=== PATIENT | male | born 1985 | race Caucasian/White ===

== ENCOUNTER 2016-06-27 12:33 | Inpatient (IN) | payer BC ==
[2016-06-27 17:44] VITALS: BMI 28.3
--- NOTE | 2016-06-27 18:06 | HP ---
COWS - Scale Resting Pulse: 2= SD 101-120 Sweatin= Chills/Flushing Restless Observation: 3= Extraneous Movement Pupil Size: 0= Normal to Room Light Bone or Joint Aches: 2= Severe Diffuse Aches Runny Nose/ Eye Tearin= Runny Nose/Eyes GI Upset > 30mins: 2= Nausea/Diarrhea Tremor Observation: 2= Slight Tremor Visible Yawning Observation: 0= None Anxiety or Irritability: 1=Feels Anxious/Irritable Goose Flesh Skin: 3=Piloerection COWS Score: 18 Admission ROS S - HPI Chief Complaint: 30 years old male with long history of opiate dependence denies medical issue has depression and anxiety is admitted to detox Allergies/Adverse Reactions: Allergies Allergy/AdvReac Type Severity Reaction Status Date / Time No Known Allergies Allergy Verified 06/27/16 17:44 History of Present Illness: withdrawal sx Exam Limitations: No Limitations - Ebola screening Have you traveled outside of the country in the last 21 days: No Have you had contact with anyone from an Ebola affected area: No Have you been sick,other than usual withdrawal symptoms: No Do you have a fever: No - Review of Systems Constitutional: Chills, Changes in sleep, Weight Stable EENT: reports: No Symptoms Reported Respiratory: reports: No Symptoms reported Cardiac: reports: No Symptoms Reported GI: reports: Diarrhea, Nausea, Poor Fluid Intake, Indigestion, Abdominal cramping : reports: No Symptoms Reported Musculoskeletal: reports: Back Pain, Joint Pain, Muscle Pain, Neck Pain Integumentary: reports: No Symptoms Reported Neuro: reports: Tremors Endocrine: reports: No Symptoms Reported Hematology: reports: No Symptoms Reported Psychiatric: reports: Judgement Intact, Orientated x3, Anxious Other Systems: Reviewed and Negative Patient History - Patient Medical History Hx Anemia: No Hx Asthma: No Hx Chronic Obstructive Pulmonary Disease (COPD): No Hx Cancer: No Hx Cardiac Disorders: No Hx Congestive Heart Failure: No Hx Hypertension: No Hx Hypercholesterolemia: No Hx Pacemaker: No HX Cerebrovascular Accident: No Hx Seizures: No Hx Dementia: No Hx Diabetes: No Hx Gastrointestinal Disorders: No Hx Liver Disease: No Hx Genitourinary Disorders: No Hx Sexually Transmitted Disorders: No Hx Renal Disease (ESRD): No Hx Thyroid Disease: No Hx Human Immunodeficiency Virus (HIV): No Hx Hepatitis C: No Hx Depression: Yes Hx Suicide Attempt: No Hx Bipolar Disorder: No Hx Schizophrenia: No - Patient Surgical History Past Surgical History: Yes Hx Neurologic Surgery: Yes (deep brain stimulation 2012, removed 2014) Anesthesia Reaction: No - PPD History Previous Implant?: Yes Documented Results: Positive w/o proof Implanted On Prior R Admission?: No PPD to be Administered?: No - Smoking Cessation Smoking history: Never smoked Have you smoked in the past 12 months: No Hx Chewing Tobacco Use: No Initiated information on smoking cessation: No - Substance & Tx. History Hx Alcohol Use: Yes Hx Substance Use: Yes Substance Use Type: Alcohol, Opiates Hx Substance Use Treatment: Yes - Substances Abused Alcohol Route: Oral Frequency: 1-2 times per week Amount used: 4 oz volka Age of first use: 28 Date of Last Use: 06/25/16 PERCOCETS Route: Oral Frequency: Daily Amount used: 60 - 70 mg Age of first use: 28 Date of Last Use: 06/26/16 Family Disease History - Family Disease History Family Disease History: Heart Disease: Father (stroke ) Admission Physical Exam [facility] - Vital Signs Vital Signs: Vital Signs - 24 hr 06/27/16 17:43 Temperature 97.8 F Pulse Rate 101 H Respiratory 18 Rate Blood Pressure 132/77 - Physical General Appearance: Yes: Nourished, Appropriately Dressed, Moderate Distress, Tremorous, Irritable, Sweating, Anxious HEENTM: Yes: Hearing grossly Normal, Normal ENT Inspection, Normocephalic, Normal Voice Respiratory: Yes: Chest Non-Tender, Lungs Clear, Normal Breath Sounds, No Respiratory Distress, No Accessory Muscle Use Neck: Yes: Supple, Trachea in good position Breast: Yes: Breasts Symetrical Cardiology: Yes: Regular Rhythm, S1, S2, Tachycardia (amphetamine) Abdominal: Yes: Non Tender, Soft, Increased Bowel Sounds Genitourinary: Yes: Within Normal Limits Back: Yes: Normal Inspection Musculoskeletal: Yes: full range of Motion, Gait Steady, Back pain, Muscle Pain Extremities: Yes: Normal Range of Motion, Non-Tender, Tremors Neurological: Yes: Fully Oriented, Alert, Motor Strength 5/5, Normal Response, Depressed Affect Integumentary: Yes: Warm Lymphatic: Yes: Within Normal Limits - Diagnostic (1) Opioid dependence with withdrawal Current Visit: Yes Status: Acute (2) Positive PPD, treated Current Visit: Yes Status: Resolved (3) Anxiety and depression Current Visit: Yes Status: Suspected Cleared for Admission [facility] - Detox or Rehab [facility] Level of Care: Medically Managed Detox Regimen/Protocol: Methadone [facility] Breath Alcohol Content Breath Alcohol Content: 0 Urine Drug Screen - Results Drug Screen Negative: No Urine Drug Screen Results: OPI-Opiates, AMP-Amphetamines, OXY-Oxycodone
[2016-06-27] MEDS ORDERED: ACETAMINOPHEN 325 MG TABLET (FP) PO PRN (18:13)
[2016-06-27] MEDS ORDERED: MAGNESIUM CITRATE 300 ML BOTTLE PO PRN (18:13)
[2016-06-27] MEDS ORDERED: MAG HYDROX/AL HYDROX/SIMETH 30 ML UNIT-DOSE CUP PO PRN (18:13)
[2016-06-27] MEDS ORDERED: guaiFENesin/D-METHORPHAN HB 10 ML UNIT-DOSE CUPS PO PRN (18:13)
[2016-06-27] MEDS ORDERED: MENTHOL/PHENOL 1 EACH UD MM PRN (18:13)
[2016-06-27] MEDS ORDERED: P-EPHED 60MG/TRIPROLIDI 2.5MG TABLET PO PRN (18:13)
[2016-06-27] MEDS ORDERED: LOPERAMIDE HCL 2 MG CAPSULE PO PRN (18:13)
[2016-06-27] MEDS ORDERED: MAGNESIUM HYDROX 2400MG/30ML ORAL SUSPENSION 30 ML CUP PO PRN (18:13)
[2016-06-27] MEDS ORDERED: METHADONE HCL 10 MG TABLET (FOR DETOX USE ONLY) PO ONE ×2 (19:00→23:00)
[2016-06-27] MEDS: diazePAM 5 MG TABLET PO PRN (19:50)
[2016-06-27] MEDS: IBUPROFEN 400 MG TABLET (FP) PO PRN (22:14)
[2016-06-27] MEDS: diphenhydrAMINE HCL 50 MG CAPSULE PO PRN (22:15)
[2016-06-27] MEDS: THIAMINE HCL 100 MG TABLET (FP) PO SCH (22:15)
[2016-06-27 22:54] LABS: URINE APPEARANCE CLEAR; URINE BILIRUBIN NEGATIVE (NEGATIVE); URINE BLOOD NEGATIVE (NEGATIVE); URINE COLOR LTYELLOW; URINE GLUCOSE (UA) NEGATIVE (NEGATIVE); URINE KETONE NEGATIVE (NEGATIVE); URINE LEUK ESTERASE NEGATIVE (NEGATIVE); URINE NITRITE NEGATIVE (NEGATIVE); URINE PROTEIN NEGATIVE (NEGATIVE); URINE UROBILINOGEN NEGATIVE E.U./dl (0.2-1.0)
[2016-06-28] MEDS: diazePAM 5 MG TABLET PO PRN ×3 (06:01→22:16)
[2016-06-28] MEDS ORDERED: METHADONE HCL 10 MG TABLET (FOR DETOX USE ONLY) PO ONE (10:00)
[2016-06-28] MEDS: PRENATAL VITAMINS W/ FOLIC ACID TABLET (FP) PO SCH (10:11)
--- NOTE | 2016-06-28 11:05 | PN ---
BHS COWS - Scale Resting Pulse: 1= ND 81-100 Sweatin=Flushed/Facial Moisture Restless Observation: 1= Difficult to Sit Still Pupil Size: 0= Normal to Room Light Bone or Joint Aches: 2= Severe Diffuse Aches Runny Nose/ Eye Tearin= Runny Nose/Eyes GI Upset > 30mins: 2= Nausea/Diarrhea Tremor Observation of Outstretched Hands: 2= Slight Tremor Visible Yawning Observation: 1= 1-2x During Session Anxiety or Irritability: 2=Irritable/Anxious Goose Flesh Skin: 0=Smooth Skin COWS Score: 15 BHS Progress Note (SOAP) Subjective: Anxiety,tremors,sweating,interrupted sleep,restless Objective: 06/28/16 11:04 Vital Signs - 8 hr 06/28/16 06/28/16 06/28/16 03:30 06:45 09:46 Temperature 97.6 F 97.9 F Pulse Rate 75 87 Respiratory 18 18 18 Rate Blood Pressure 105/77 108/76 Laboratory Tests 06/27/16 22:00 Urine Color Ltyellow Urine Appearance Clear Urine pH 6.0 Ur Specific [place] 1.023 Urine Protein Negative Urine Glucose (UA) Negative Urine Ketones Negative Urine Blood Negative Urine Nitrite Negative Urine Bilirubin Negative Urine Urobilinogen Negative Ur Leukocyte Esterase Negative noted Assessment: 06/28/16 11:04 Withdrawal sx. Plan: Continue detox
[2016-06-28 11:41] LABS: ALBUMIN 4.2 g/dl (3.4-5.0); ALK PHOS 104 U/L (45-117); ANION GAP 7 (8-16); BILIRUBIN,TOTAL 0.4 mg/dL (0.2-1.0); CALCIUM 9.6 mg/dL (8.5-10.1); CO2 32 mmol/L (21-32); COCKROFT - GAULT 136; CREATININE 0.9 mg/dL (0.7-1.3); GLUCOSE,RANDOM 103 mg/dL (74-106); SGOT/AST 27 U/L (15-37); SGPT/ALT 44 U/L (12-78); TOT PROT 7.8 g/dl (6.4-8.2)
[2016-06-28 11:48] LABS: MCH 30.8 pg (25.7-33.7); MCHC 33.8 g/dl (32.0-35.9); MEAN CELL VOLUME 91.1 fl (80-96); MEAN PLT VOLUME 8.1 fl (7.5-11.1); PLATELET COUNT 265 K/MM3 (134-434); RDW 13.1 % (11.9-15.9); WHITE BLOOD COUNT 7.3 K/mm3 (4.0-10.0)
--- NOTE | 2016-06-28 12:47 | CONSULT ---
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 Smoking history: Never smoked. Have you smoked in the past 12 months: No. Hx Chewing Tobacco Use: No. Initiated information on smoking cessation: No. - Substance & Tx. History. Hx Alcohol Use: Yes. Hx Substance Use: Yes. Substance Use Type: Alcohol, Opiates. Hx Substance Use Treatment: Yes. - Substances Abused. Alcohol. Route: Oral. Frequency: 1-2 times per week. Amount used: 4 oz volka. Age of first use: 28. Date of Last Use: 06/25/16. PERCOCETS. Route: Oral. Frequency: Daily. Amount used: 60 - 70 mg. Age of first use: 28. 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 So at 15, he became very withdrawn, isolative , very introverted. He has been seeing psychiatrist on & off since 15 and has been tried on various psychotropic medications including Prozac, Paxil, Zoloft, Wellbutrin, Remeron and [place]. He was even tried on VNS and DBS([id number]). For the past years, he has been Dr Dallas, a private psychiatrist [place] and he is currently prescribed Adderal 30 mg po daily & Vivanse 50 mg po daily. Reports 2 previous psychiatric admissions for depression to [facility] in 2007 and most recently to [facility] in 2011. Reports one previous suicidal attempt by cutting wrist in 2007. Physical/Sexual Abuse/Trauma History: Denies history of emotional, physical or sexual as well as DV relationship Additional Comment: Reports history of one previous arrests for drug possesion. Claims that it was originally a felony and was degraded to a misdemeanor. Reports being on probation Mental Status Exam - Mental Status Exam Alert and Oriented to: Time, Place, Person Cognitive Function: Fair Patient Appearance: Well Groomed Mood: Depressed Affect: Appropriate Patient Behavior: Cooperative Speech Pattern: Clear Voice Loudness: Normal Thought Process: Intact Thought Disorder: Not Present Hallucinations: Denies Suicidal Ideation: Denies, Past, Plan Insight/Judgement: Poor Sleep: Well Appetite: Good Muscle strength/Tone: Normal Gait/Station: Normal Psychiatric Findings - Problem List ([place] 1, 2,3) (1) MDD (major depressive disorder), recurrent episode Current Visit: Yes Status: Acute (2) Opioid dependence with withdrawal Current Visit: Yes Status: Acute (3) Alcohol abuse Current Visit: Yes Status: Acute (4) Positive PPD, treated Current Visit: Yes Status: Resolved - Initial Treatment Plan Initial Treatment Plan: Continue inpatient detoxification
--- NOTE | 2016-06-28 13:58 | EKG ---
Test Reason : Blood Pressure : / mmHG Vent. Rate : 091 BPM Atrial Rate : 091 BPM P-R Int : 146 ms QRS Dur : 088 ms QT Int : 348 ms P-R-T Axes : 055 065 040 degrees QTc Int : 428 ms NORMAL SINUS RHYTHM NORMAL ECG NO PREVIOUS ECGS AVAILABLE Confirmed by ILAN LUGO, CHANCE ([id number]) on 06/28/2016 1:58:19 PM Referred By: Confirmed By:CHANCE TALAVERA MD
[2016-06-28] MEDS: THIAMINE HCL 100 MG TABLET (FP) PO SCH (22:16)
[2016-06-29] MEDS: diazePAM 5 MG TABLET PO PRN ×2 (05:50→22:21)
[2016-06-29] MEDS ORDERED: METHADONE HCL 5 MG TABLET (FOR DETOX USE ONLY) PO ONE (10:00)
[2016-06-29] MEDS: PRENATAL VITAMINS W/ FOLIC ACID TABLET (FP) PO SCH (10:07)
--- NOTE | 2016-06-29 16:35 | PN ---
BHS COWS - Scale Resting Pulse: 1= NC 81-100 Sweatin=Flushed/Facial Moisture Restless Observation: 1= Difficult to Sit Still Pupil Size: 0= Normal to Room Light Bone or Joint Aches: 2= Severe Diffuse Aches Runny Nose/ Eye Tearin= Runny Nose/Eyes GI Upset > 30mins: 2= Nausea/Diarrhea Tremor Observation of Outstretched Hands: 2= Slight Tremor Visible Yawning Observation: 1= 1-2x During Session Anxiety or Irritability: 2=Irritable/Anxious Goose Flesh Skin: 0=Smooth Skin COWS Score: 15 BHS Progress Note (SOAP) Subjective: Sweating,anxiety,tremors,interrupted sleep,restless Objective: 06/29/16 16:34 Vital Signs - 8 hr 06/29/16 06/29/16 09:40 13:29 Temperature 97.3 F L 97.5 F L Pulse Rate 91 H 83 Respiratory 18 20 Rate Blood Pressure 111/67 110/70 Laboratory Tests 06/27/16 06/28/16 06/28/16 22:00 06:40 06:40 WBC 7.3 RBC 5.26 Hgb 16.2 Hct 47.9 MCV 91.1 MCHC 33.8 RDW 13.1 Plt Count 265 MPV 8.1 Sodium 140 Potassium 4.6 Chloride 101 Carbon Dioxide 32 Anion Gap 7 L BUN 14 Creatinine 0.9 Creat Clearance w eGFR > 60 Random Glucose 103 Calcium 9.6 Total Bilirubin 0.4 AST 27 ALT 44 Alkaline Phosphatase 104 Total Protein 7.8 Albumin 4.2 Urine Color Ltyellow Urine Appearance Clear Urine pH 6.0 Ur Specific [place] 1.023 Urine Protein Negative Urine Glucose (UA) Negative Urine Ketones Negative Urine Blood Negative Urine Nitrite Negative Urine Bilirubin Negative Urine Urobilinogen Negative Ur Leukocyte Esterase Negative RPR Titer 06/28/16 06:40 WBC RBC Hgb Hct MCV MCHC RDW Plt Count MPV Sodium Potassium Chloride Carbon Dioxide Anion Gap BUN Creatinine Creat Clearance w eGFR Random Glucose Calcium Total Bilirubin AST ALT Alkaline Phosphatase Total Protein Albumin Urine Color Urine Appearance Urine pH Ur Specific [place] Urine Protein Urine Glucose (UA) Urine Ketones Urine Blood Urine Nitrite Urine Bilirubin Urine Urobilinogen Ur Leukocyte Esterase RPR Titer Nonreactive labs noted Assessment: 06/29/16 16:34 Withdrawal sx. Plan: Continue detox
[2016-06-29] MEDS: THIAMINE HCL 100 MG TABLET (FP) PO SCH (22:21)
[2016-06-29] MEDS: IBUPROFEN 400 MG TABLET (FP) PO PRN (22:22)
[2016-06-30] MEDS: diazePAM 5 MG TABLET PO PRN ×2 (05:46→10:13)
[2016-06-30] MEDS ORDERED: METHADONE HCL 5 MG TABLET (FOR DETOX USE ONLY) PO ONE (10:00)
--- NOTE | 2016-06-30 10:07 | PN ---
BHS Progress Note (SOAP) Subjective: Anxiety,tremors,sweating,interrupted sleep,restless Objective: 06/30/16 10:06 Vital Signs - 8 hr 06/30/16 06/30/16 06/30/16 03:30 06:26 09:18 Temperature 97.6 F 96.7 F L Pulse Rate 73 75 Respiratory 18 16 18 Rate Blood Pressure 119/70 117/76 Laboratory Last Values WBC 7.3 K/mm3 (4.0-10.0) 06/28/16 06:40 RBC 5.26 M/mm3 (4.00-5.60) 06/28/16 06:40 Hgb 16.2 GM/dL (11.7-16.9) 06/28/16 06:40 Hct 47.9 % (35.4-49) 06/28/16 06:40 MCV 91.1 fl (80-96) 06/28/16 06:40 MCHC 33.8 g/dl (32.0-35.9) 06/28/16 06:40 RDW 13.1 % (11.9-15.9) 06/28/16 06:40 Plt Count 265 K/MM3 (134-434) 06/28/16 06:40 MPV 8.1 fl (7.5-11.1) 06/28/16 06:40 Sodium 140 mmol/L (136-145) 06/28/16 06:40 Potassium 4.6 mmol/L (3.5-5.1) 06/28/16 06:40 Chloride 101 mmol/L (98-107) 06/28/16 06:40 Carbon Dioxide 32 mmol/L (21-32) 06/28/16 06:40 Anion Gap 7 (8-16) L 06/28/16 06:40 BUN 14 mg/dL (7-18) 06/28/16 06:40 Creatinine 0.9 mg/dL (0.7-1.3) 06/28/16 06:40 Creat Clearance w eGFR > 60 (>60) 06/28/16 06:40 Random Glucose 103 mg/dL (74-106) 06/28/16 06:40 Calcium 9.6 mg/dL (8.5-10.1) 06/28/16 06:40 Total Bilirubin 0.4 mg/dL (0.2-1.0) 06/28/16 06:40 AST 27 U/L (15-37) 06/28/16 06:40 ALT 44 U/L (12-78) 06/28/16 06:40 Alkaline Phosphatase 104 U/L (45-117) 06/28/16 06:40 Total Protein 7.8 g/dl (6.4-8.2) 06/28/16 06:40 Albumin 4.2 g/dl (3.4-5.0) 06/28/16 06:40 Urine Color Ltyellow 06/27/16 22:00 Urine Appearance Clear 06/27/16 22:00 Urine pH 6.0 (5.0-8.0) 06/27/16 22:00 Ur Specific [place] 1.023 (1.001-1.035) 06/27/16 22:00 Urine Protein Negative (NEGATIVE) 06/27/16 22:00 Urine Glucose (UA) Negative (NEGATIVE) 06/27/16 22:00 Urine Ketones Negative (NEGATIVE) 06/27/16 22:00 Urine Blood Negative (NEGATIVE) 06/27/16 22:00 Urine Nitrite Negative (NEGATIVE) 06/27/16 22:00 Urine Bilirubin Negative (NEGATIVE) 06/27/16 22:00 Urine Urobilinogen Negative E.U./dl (0.2-1.0) 06/27/16 22:00 Ur Leukocyte Esterase Negative (NEGATIVE) 06/27/16 22:00 RPR Titer Nonreactive (NONREACTIVE) 06/28/16 06:40 labs noted Assessment: 06/30/16 10:07 Withdrawal sx. Plan: Continue detox
[2016-06-30] MEDS: PRENATAL VITAMINS W/ FOLIC ACID TABLET (FP) PO SCH (10:12)
[2016-06-30] MEDS: IBUPROFEN 400 MG TABLET (FP) PO PRN (16:44)
[2016-06-30] MEDS: THIAMINE HCL 100 MG TABLET (FP) PO SCH (22:12)
[2016-06-30] MEDS: diphenhydrAMINE HCL 50 MG CAPSULE PO PRN (22:12)
[2016-07-01] MEDS: diphenhydrAMINE HCL 50 MG CAPSULE PO PRN (00:50)
[2016-07-01] MEDS: PRENATAL VITAMINS W/ FOLIC ACID TABLET (FP) PO SCH (09:41)
[2016-07-01 09:56] VITALS: BP 117/71; PULSE 95; TEMP 97.1
[2016-07-01] MEDS ORDERED: METHADONE HCL 10 MG TABLET (FOR DETOX USE ONLY) PO ONE (10:00)
--- NOTE | 2016-07-01 10:43 | DS ---
[facility] Detox Discharge Summary Admission Date: 06/27/16 Discharge Date: 07/01/16 - History Present History: Opioid Dependence Additional Comments: ALERT O X 3. NAD. Pertinent Past History: PPD+ HX - Physical Exam Results Vital Signs: Vital Signs Temperature 97.1 F L 07/01/16 09:55 Pulse Rate 95 H 07/01/16 09:55 Respiratory Rate 20 07/01/16 09:55 Blood Pressure 117/71 07/01/16 09:55 O2 Sat by Pulse Oximetry (%) Pertinent Admission Physical Exam Findings: WITHDRAWAL SX - Treatment Hospital Course: Detox Protocol Followed, Detoxed Safely, Responded well, Discharged Condition Good - Medication Discharge Medications: Ambulatory Orders Dextroamphetamine/Amphetamine [Adderall Xr 30 mg Capsule] 30 mg PO DAILY Lisdexamfetamine Dimesylate [Vyvanse] 50 mg PO DAILY 06/27/16 - Diagnosis (1) MDD (major depressive disorder), recurrent episode Current Visit: Yes Status: Acute (2) Opioid dependence with withdrawal Current Visit: Yes Status: Acute (3) Anxiety and depression Current Visit: Yes Status: Suspected - AMA Did Patient Leave Against Medical Advice: No
[2016-07-02] MEDS ORDERED: METHADONE HCL 5 MG TABLET (FOR DETOX USE ONLY) PO ONE (06:00)
== END 2016-07-01 10:11 | disposition home or self-care (01) | DRG 897 ==
LOC: YASAS 12:33 → Y3N 18:44
PROVIDERS: ADMIT Internal Medicine; ATTEND Internal Medicine
PROC: HZ2ZZZZ Detoxification Services for Substance Abuse Treatment (ICD-10-PCS; principal; 2016-07-01)
DX: F11.23 Opioid dependence with withdrawal (principal); F33.2 Major depressive disorder, recurrent severe without psychotic features; F10.20 Alcohol dependence, uncomplicated; F41.8 Other specified anxiety disorders; R76.11 Nonspecific reaction to tuberculin skin test without active tuberculosis
CPT/HCPCS: 36415; 71020-TC; 80053; 81003; 85027; 86593; 93005; 93010